=== PATIENT | male | born 1995 | race Caucasian/White ===

== ENCOUNTER 2017-05-13 16:40 | Emergency (ER) | payer MEDICAID, OTHER ==
[2017-05-13 17:02] VITALS: BMI 24.0
[2017-05-13 17:03] VITALS: BP 135/5; PULSE 93; RESP 18; TEMP 98.1; O2SAT 98
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
--- NOTE | 2017-05-14 09:13 | RAD ---
PROCEDURE: Right Hand Radiographs. HISTORY: pain s.p injury lateral hand, 5th metacarpal. COMPARISON: None. FINDINGS: BONES: Normal. No fracture. JOINTS: Normal. No osteoarthritic changes. SOFT TISSUES: Normal. OTHER FINDINGS: None. IMPRESSION: Normal right hand radiographs.
== END 2017-05-13 18:54 | disposition home or self-care (01) ==
LOC: C.ER 16:40
DX: S60.221D Contusion of right hand, subsequent encounter (principal); V09.20XD Pedestrian injured in traffic accident involving unspecified motor vehicles, subsequent encounter

== ENCOUNTER 2017-06-11 20:24 | Emergency (ER) | payer MEDICAID ==
[2017-06-11 20:24] VITALS: BMI 24.0
--- NOTE | 2017-06-11 21:16 | C.PDOC ---
History Of Present Illness 22 year old male presents to the ED c/o feeling bloated, bowel movements decreased from twice a day to once a day for the past week. Patient reports he noticed his stool smelled odd usually smells like "rotten eggs" and now smells like "sewage". Patient reports that the smell of his own stool makes him nauseous. Patient denies any associated symptoms, no fever, chills, urinary symptoms, change in appetite. Time Seen by Provider: 06/11/17 20:53 Chief Complaint (Nursing): Abdominal Pain History Per: Patient History/Exam Limitations: no limitations Onset/Duration Of Symptoms: Days Current Symptoms Are (Timing): Still Present Location Of Pain/Discomfort: Diffuse Radiation Of Pain To:: None Quality Of Discomfort: "Pain" Associated Symptoms: denies: Nausea, Vomiting, Diarrhea, Constipation Exacerbating Factors: None Alleviating Factors: None Recent travel outside of the [place]: No Additional History Per: Patient Past Medical History Reviewed: Historical Data, Nursing Documentation, Vital Signs Vital Signs: Last Vital Signs Temp 98.3 F 06/11/17 20:27 Pulse 81 06/11/17 20:27 Resp 20 06/11/17 20:27 BP 121/73 06/11/17 20:27 Pulse Ox 99 06/11/17 21:18 - Medical History PMH: Seizures Surgical History: No Surg Hx Family History: States: Unknown Family Hx - Social History Hx Tobacco Use: No Hx Alcohol Use: No Hx Substance Use: No - Immunization History Hx Tetanus Toxoid Vaccination: No Hx Influenza Vaccination: Yes Hx Pneumococcal Vaccination: No Review Of Systems Constitutional: Negative for: Fever, Chills Cardiovascular: Negative for: Chest Pain Respiratory: Negative for: Cough, Shortness of Breath Gastrointestinal: Negative for: Nausea, Vomiting, Abdominal Pain Skin: Negative for: Rash Neurological: Negative for: Weakness, Numbness Physical Exam - Physical Exam Appears: Non-toxic, No Acute Distress Skin: Normal Color, Warm, Dry Head: Atraumatic, Normacephalic Eye(s): bilateral: Normal Inspection Nose: No Discharge Oral Mucosa: Moist Neck: Normal ROM, Supple Chest: Symmetrical Cardiovascular: Rhythm Regular, No Murmur Respiratory: Normal Breath Sounds, No Rales, No Rhonchi, No Wheezing Gastrointestinal/Abdominal: Soft, No Tenderness, No Guarding, No Rebound Extremity: Normal ROM, No Tenderness, No Swelling Neurological/Psych: Oriented x3 Gait: Steady ED Course And Treatment - Laboratory Results Result Diagrams: 06/11/17 21:30 06/11/17 21:30 Lab Interpretation: Normal O2 Sat by Pulse Oximetry: 99 (On RA) Pulse Ox Interpretation: Normal - Other Rad Obstructive series X-Ray: Interpreted by Me Interpretation: Stool present throughout the colon. Normal bowel gas pattern. Reevaluation Time: 21:52 Reassessment Condition: Unchanged Medical Decision Making Medical Decision Making: Impression: feeling bloated Plan: * Labs * Obstructive series X-Ray * UA Disposition Counseled Patient/Family Regarding: Studies Performed, Diagnosis, Need For Followup - Disposition Disposition: HOME/ ROUTINE Disposition Time: 21:59 Condition: STABLE Additional Instructions: Increase your fluids and eat a high fiber diet to soften your stools. Instructions: Constipation, Adult (DC) Forms: [facility] (Malay) - Clinical Impression Clinical Impression: Constipation - Scribe Statement The provider has reviewed the documentation as recorded by the Scribe David Chahal All medical record entries made by the Scribe were at my direction and personally dictated by me. I have reviewed the chart and agree that the record accurately reflects my personal performance of the history, physical exam, medical decision making, and the department course for this patient. I have also personally directed, reviewed, and agree with the discharge instructions and disposition.
[2017-06-11 21:39] LABS: BASO % 0.6 % (0.0-2.0); EOS # 0.1 K/uL (0.0-0.7); EOS % 2.1 % (0.0-4.0); HEMOGLOBIN 13.4 g/dL (12.0-18.0); LYMPH # 2.8 K/uL (1.0-4.3); LYMPH % 45.5 % (20.0-40.0); MEAN CELL VOLUME 87.6 fL (80.0-94.0); MEAN CORPUSCULAR HGB CONC 34.3 g/dL (33.0-37.0); MEAN PLATELET VOLUME 9.1 fL (7.2-11.7); MONO # 0.6 K/uL (0.0-0.8); MONO % 9.1 % (0.0-10.0); NEUT # 2.6 K/uL (1.8-7.0); NEUT % 42.7 % (50.0-75.0); NRBC % 0.1 % (0.0-2.0); RBC 4.45 Mil/uL (4.40-5.90); WHITE BLOOD COUNT 6.2 K/uL (4.8-10.8)
[2017-06-11 21:47] LABS: ALB/GLOB RATIO 1.4 (1.0-2.1); ALBUMIN 4.4 g/dL (3.5-5.0); ALT/SGPT 38 U/L (21-72); AST/SGOT 30 U/L (17-59); BLOOD UREA NITROGEN 16 mg/dL (9-20); CALCIUM 8.7 mg/dl (8.6-10.4); GFR AFRICAN-AMERICAN > 60; GFR NON-AFRICAN AMERICAN > 60; LIPASE 127 U/L (23-300)
[2017-06-11 22:24] LABS: SQUAMOUS EPITHIAL < 1 /hpf (0-5); URINE BACTERIA RARE (<OCC); URINE BILIRUBIN NEGATIVE (NEGATIVE); URINE BLOOD NEGATIVE (NEGATIVE); URINE CLARITY Clear (Clear); URINE COLOR Yellow (YELLOW); URINE GLUCOSE (UA) NORMAL (Normal); URINE LEUKOCYTE ESTERASE NEG Leu/uL (Negative); URINE PROTEIN NEGATIVE (NEGATIVE)
[2017-06-11 22:34] VITALS: BP 115/68; PULSE 79; RESP 18; TEMP 97.9; O2SAT 96
--- NOTE | 2017-06-12 09:23 | RAD ---
PROCEDURE: Radiographs of the chest and abdomen (obstructive series) HISTORY: abd pain COMPARISON: No prior. TECHNIQUE: AP radiograph of the chest, with upright and supine radiographs of the abdomen. FINDINGS: CHEST: Lungs: Clear. Cardiovascular: Normal size heart. No pulmonary vascular congestion. Pleura: No pleural fluid. No pneumothorax. Other findings: None. ABDOMEN AND PELVIS: Bowel: No bowel obstruction. Mild retained feces. No hepatic or splenic enlargement. No masses or abnormal intra-abdominal calcifications. Free air: None. Bones: Unremarkable. Other findings: None. IMPRESSION: Mild retained feces. No bowel obstruction. Otherwise unremarkable.
== END 2017-06-11 22:35 | disposition home or self-care (01) ==
LOC: C.ER 20:24
DX: K59.00 Constipation, unspecified (principal)

== ENCOUNTER 2017-09-25 18:27 | Emergency (ER) | payer OTHER, MEDICAID ==
[2017-09-25 18:27] VITALS: BMI 24.0
[2017-09-25 18:32] VITALS: BP 137/79; PULSE 86; RESP 16; TEMP 98; O2SAT 98
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
--- NOTE | 2017-09-26 09:29 | RAD ---
PROCEDURE: Left Hip X-ray Radiographs. HISTORY: trauma COMPARISON: None. FINDINGS: BONES: No acute fracture. JOINTS: Normal. SOFT TISSUES: Normal. OTHER FINDINGS: None. IMPRESSION: No demonstrated fracture or dislocation.
== END 2017-09-25 20:49 | disposition home or self-care (01) ==
LOC: C.ER 18:27
DX: S70.02XA Contusion of left hip, initial encounter (principal); S50.02XA Contusion of left elbow, initial encounter; V03.90XA Pedestrian on foot injured in collision with car, pick-up truck or van, unspecified whether traffic or nontraffic accident, initial encounter

== ENCOUNTER 2017-12-27 19:45 | Emergency (ER) | payer MEDICAID ==
[2017-12-27 19:45] VITALS: BMI 24.0
--- NOTE | 2017-12-27 21:48 | C.PDOC ---
History Of Present Illness 22 year old male presents to the ED for evaluation of fever and worsening body aches, cough and nose congestion for the last 2 days. Patient reports he had a fever of 102F last night and today and states productive cough with yellow sputum. Admits to taking Claritin and Nyquil last night. No known allergies to drugs. Denies vomiting, nausea, abdominal pain, flu vaccine, and any other associated symptoms. Time Seen by Provider: 12/27/17 20:06 Chief Complaint (Nursing): Flu-like Symptoms History Per: Patient History/Exam Limitations: no limitations Onset/Duration Of Symptoms: Days Current Symptoms Are (Timing): Still Present Past Medical History Reviewed: Historical Data, Nursing Documentation, Vital Signs Vital Signs: Last Vital Signs Temp 98.3 F 12/27/17 19:49 Pulse 103 H 12/27/17 19:49 Resp 19 12/27/17 19:49 BP 134/84 12/27/17 19:49 Pulse Ox 99 12/27/17 19:49 - Medical History PMH: Seizures Family History: States: Unknown Family Hx - Social History Hx Tobacco Use: No Hx Alcohol Use: Yes Hx Substance Use: No - Immunization History Hx Tetanus Toxoid Vaccination: No Hx Influenza Vaccination: No Hx Pneumococcal Vaccination: No Review Of Systems Except As Marked, All Systems Reviewed And Found Negative. Constitutional: Positive for: Fever (1002F) ENT: Positive for: Nose Congestion Respiratory: Positive for: Cough, Sputum (yellow) Gastrointestinal: Negative for: Nausea, Vomiting Musculoskeletal: Positive for: Other (body aches.) Physical Exam - Physical Exam Appears: Non-toxic Skin: Warm, Dry Head: Atraumatic, Normacephalic Ear(s): Bilateral: Normal Nose: Discharge Oral Mucosa: Moist Throat: Normal, No Erythema, No Exudate Neck: Normal ROM (x4), Supple Cardiovascular: Rhythm Regular Respiratory: Normal Breath Sounds, No Rales, No Rhonchi, No Wheezing Neurological/Psych: Oriented x3, Normal Speech, Normal Motor, Normal Sensation, Normal Reflexes Gait: Steady ED Course And Treatment O2 Sat by Pulse Oximetry: 99 (RA) Pulse Ox Interpretation: Normal Medical Decision Making Medical Decision Making: Plan: --Ibuprofen --Azithromycin Update/Progress: Patient stable for discharge. Prescribed azithromycin and advised to follow up if symptoms do not improve. Disposition - Disposition Disposition: HOME/ ROUTINE Disposition Time: 22:00 Condition: GOOD Forms: [facility] (Swedish) - Clinical Impression Clinical Impression: Viral illness - PA / CABIN MAN / Resident Statement MD/DO has reviewed & agrees with the documentation as recorded. - Scribe Statement The provider has reviewed the documentation as recorded by the Scribe (Marizol Mosley) All medical record entries made by the Scribe were at my direction and personally dictated by me. I have reviewed the chart and agree that the record accurately reflects my personal performance of the history, physical exam, medical decision making, and the department course for this patient. I have also personally directed, reviewed, and agree with the discharge instructions and disposition.
[2017-12-27 22:06] VITALS: BP 101/64; PULSE 79; RESP 18; TEMP 98.6
[2017-12-28 06:28] VITALS: O2SAT 99
== END 2017-12-27 21:15 | disposition home or self-care (01) ==
LOC: C.ER 19:45
DX: B34.9 Viral infection, unspecified (principal)

== ENCOUNTER 2018-05-08 18:55 | Emergency (ER) | payer MEDICAID, OTHER ==
[2018-05-08 18:55] VITALS: BMI 24.0
[2018-05-08 19:00] VITALS: BP 138/77; PULSE 83; RESP 18; TEMP 97.8; O2SAT 97
--- NOTE | 2018-05-08 20:13 | C.PDOC ---
History Of Present Illness 22 y/o male presents to the ED for evaluation of left finger injury sustained earlier today. While at work a drill kicked back and slammed his left 4th finger. Patient felt the nail popped up. Now the nail is back down however patient wanted to get it checked out. Otherwise he denies any numbness, paresthesias, focal weakness, or discharge. Time Seen by Provider: 05/08/18 19:32 Chief Complaint (Nursing): Finger,Hand,&Wrist History Per: Patient History/Exam Limitations: no limitations Onset/Duration Of Symptoms: Hrs Current Symptoms Are (Timing): Still Present Past Medical History Reviewed: Historical Data, Nursing Documentation, Vital Signs Vital Signs: Last Vital Signs Temp 97.8 F 05/08/18 18:58 Pulse 83 05/08/18 18:58 Resp 18 05/08/18 18:58 BP 138/77 05/08/18 18:58 Pulse Ox 97 05/08/18 18:58 - Medical History PMH: Seizures Surgical History: No Surg Hx Family History: States: Unknown Family Hx - Social History Hx Tobacco Use: No Hx Alcohol Use: Yes Hx Substance Use: No - Immunization History Hx Tetanus Toxoid Vaccination: No Hx Influenza Vaccination: No Hx Pneumococcal Vaccination: No Review Of Systems Except As Marked, All Systems Reviewed And Found Negative. Constitutional: Negative for: Fever, Chills Musculoskeletal: Positive for: Hand Pain (left 4th finger) Skin: Negative for: Lesions Neurological: Negative for: Weakness, Numbness Physical Exam - Physical Exam Appears: Non-toxic, No Acute Distress Skin: Warm, Dry Head: Atraumatic, Normacephalic Eye(s): bilateral: Normal Inspection Oral Mucosa: Moist Neck: Normal ROM Chest: Symmetrical Respiratory: No Accessory Muscle Use, Other (Normal inspiratory effort) Extremity: Normal ROM, Capillary Refill (< 2 sec), No Deformity, Other (Erythema to distal aspect of the left 4th digit, nail intact, appears to have some bleedi ng under the nail, no open wounds) Pulses: Left Radial: Normal, Right Radial: Normal Neurological/Psych: Oriented x3, Normal Motor, Normal Sensation ED Course And Treatment O2 Sat by Pulse Oximetry: 97 (RA) Pulse Ox Interpretation: Normal Medical Decision Making Medical Decision Making: Impression: Left finger injury Plan: - Left hand x-ray X-ray reviewed by me, and shows no acute fracture or dislocation. Left 4th digit splinted by me. Patient is stable for discharge home. 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 - Scribe Statement The provider has reviewed the documentation as recorded by the Scribjose Sheppard All medical record entries made by the Pilloibjose were at my direction and personally dictated by me. I have reviewed the chart and agree that the record accurately reflects my personal performance of the history, physical exam, medical decision making, and the department course for this patient. I have also personally directed, reviewed, and agree with the discharge instructions and disposition.
--- NOTE | 2018-05-09 09:12 | RAD ---
Date of service: 05/08/2018 PROCEDURE: Left ring finger radiographs. HISTORY: injury COMPARISON: None. TECHNIQUE: AP radiograph of the left hand, as well as spot oblique and lateral images of left ring finger were obtained. FINDINGS: LEFT RING FINGER: Left ring finger normal, without fracture of focal lesion. Remainder of the left hand (as seen on the AP view) is grossly unremarkable. JOINTS: Normal. SOFT TISSUES: Normal. OTHER FINDINGS: None. IMPRESSION: Normal left ring finger radiographs.
== END 2018-05-08 19:32 | disposition home or self-care (01) ==
LOC: C.ER 18:55
DX: S60.042A Contusion of left ring finger without damage to nail, initial encounter (principal); W31.89XA Contact with other specified machinery, initial encounter; Y92.89 Other specified places as the place of occurrence of the external cause; Y99.0 Civilian activity done for income or pay